=== PATIENT | male | born 1975 | race Two or more races ===

== ENCOUNTER 2017-02-27 07:38 | Emergency (ER) | payer MEDICAID ==
[~2017-02-27] VITALS: Ht 177.8 cm; Wt 77.1 kg
[2017-02-27] MEDS ORDERED: NKM (07:39)
--- NOTE | 2017-02-27 07:52 | Emergency Room Report ---
History of Present Illness General Chief Complaint: Upper Respiratory Illness Source: Patient, EMS Present Illness HPI Patient present with complaints of epigastric pain with midsternal pain and burning Ongoing for the past 2 weeks off and on however over the past 2 days worsening Denies any vomiting or diarrhea Denies any flank pain Pain is 8/10 as noted above Denies any fall or trauma Patient describes chest pain however it is essentially midsternal with radiation from the epigastric area Denies any pleurisy Patient has a mild cough Allergies: Coded Allergies: No Known Allergies (Unverified , 02/27/17) Patient History Past Medical History: see triage record Pertinent Family History: none Reviewed Nursing Documentation: PMH: Agreed, PSxH: Agreed Nursing Documentation-PMH Past Medical History: No History, Except For History Of Psychiatric Problem: Yes - anxiety Review of Systems All Other Systems: negative except mentioned in HPI Physical Exam Vital Signs Date Time Temp Pulse Resp B/P Pulse Ox O2 Delivery O2 Flow Rate FiO2 02/27/17 07:35 98.4 75 18 152/92 98 Room Air Sp02 EP Interpretation: reviewed, normal General Appearance: mild distress - Patient appears uncomfortable and in pain Head: normocephalic, atraumatic Eyes: bilateral eye EOMI, bilateral eye PERRL ENT: hearing grossly normal, normal pharynx, TMs + canals normal, uvula midline Neck: full range of motion, supple, no meningismus, no bony tend Respiratory: lungs clear, normal breath sounds, no rhonchi, no respiratory distress, no retraction, no accessory muscle use Cardiovascular #1: normal peripheral pulses, regular rate, rhythm, no edema, no gallop, no JVD, no murmur Gastrointestinal: normal bowel sounds, non tender, soft, no mass, no organomegaly, non-distended, no guarding, no hernia, no pulsatile mass, no rebound Musculoskeletal: normal inspection Neurologic: oriented x3, responsive, heat treat supervisor III-XII nml as tested, motor strength/ tone normal, sensory intact Psychiatric: mood/affect normal Skin: normal color, no rash, warm/dry, palpation normal Lymphatic: normal inspection, no adenopathy Medical Decision Making Diagnostic Impression: Primary Impression: Abdominal pain Additional Impression: Drug abuse ER Course With the history exam and presentation, multiple differentials considered, including but not limited to appendicitis, gastritis, cholecystitis, diverticulitis Given the patient's continued discomfort and appearance of midsternal discomfort as well CT angios obtained Does not show any obvious acute pathology After multiple re\re evaluations Patient now does confirm methamphetamine use Which was on his urine sample Likely causing some of the symptoms the patient was feeling Otherwise remains hemodynamically stable and appropriate for close outpatient followup Labs Test 02/27/17 07:55 02/27/17 08:30 White Blood Count 10.7 K/UL (4.8-10.8) Red Blood Count 5.60 M/UL (4.70-6.10) Hemoglobin 16.1 G/DL (14.2-18.0) Hematocrit 47.2 % (42.0-52.0) Mean Corpuscular Volume 84 FL (80-99) Mean Corpuscular Hemoglobin 28.8 PG (27.0-31.0) Mean Corpuscular Hemoglobin Concent 34.1 G/DL (32.0-36.0) Red Cell Distribution Width 12.4 % (11.6-14.8) Platelet Count 360 K/UL (150-450) Mean Platelet Volume 6.5 FL (6.5-10.1) Neutrophils (%) (Auto) 62.7 % (45.0-75.0) Lymphocytes (%) (Auto) 27.8 % (20.0-45.0) Monocytes (%) (Auto) 6.1 % (1.0-10.0) Eosinophils (%) (Auto) 2.2 % (0.0-3.0) Basophils (%) (Auto) 1.2 % (0.0-2.0) Sodium Level 138 mEQ/L (135-145) Potassium Level 3.9 mEQ/L (3.4-4.9) Chloride Level 98 mEQ/L (98-107) Carbon Dioxide Level 25 mEQ/L (20-30) Anion Gap 15 (5-15) Blood Urea Nitrogen 14 mg/dL (7-23) Creatinine 1.0 mg/dL (0.7-1.2) Estimat Glomerular Filtration Rate > 60 mL/min (>60) Glucose Level 96 mg/dL (74-106) Calcium Level 9.6 mg/dL (8.6-10.2) Total Bilirubin 0.3 mg/dL (0.0-1.2) Aspartate Amino Transf (AST/SGOT) 29 U/L (5-40) Alanine Aminotransferase (ALT/SGPT) 67 U/L (3-41) Alkaline Phosphatase 86 U/L (40-129) Total Protein 7.8 g/dL (6.6-8.7) Albumin 4.1 g/dL (3.5-5.2) Globulin 3.7 g/dL Albumin/Globulin Ratio 1.1 (1.0-2.7) Lipase 100 U/L (< 60) Serum Alcohol < 10 mg/dL Urine Opiates Screen Negative (NEGATIVE) Urine Barbiturates Screen Negative (NEGATIVE) Phencyclidine (PCP) Screen Negative (NEGATIVE) Urine Amphetamines Screen Positive (NEGATIVE) Urine Benzodiazepines Screen Negative (NEGATIVE) Urine Cocaine Screen Negative (NEGATIVE) Urine Marijuana (THC) Screen Negative (NEGATIVE) Rhythm Strip Diag. Results EP Interpretation: yes Rate: 88 Rhythm: NSR, no PVC's, no ectopy Chest X-Ray Diagnostic Results EP Interpretation: Yes Findings: no consolidation, no effusion, no pneumothorax Number of Views: 1 CT/MRI/US Diagnostic Results CT/MRI/US Diagnostic Results : Impression CT abdomen pelvisImpression: Normal appearance of the aorta. No evidence of dissection or aneurysm. Mild posterior basilar atelectasis Gallstone Fatty liver Left renal cyst Normal appendix Diverticulosis of the colon Splenule Last Vital Signs Date Time Temp Pulse Resp B/P Pulse Ox O2 Delivery O2 Flow Rate FiO2 02/27/17 07:35 98.4 75 18 152/92 98 Room Air Status: improved Disposition: HOME, SELF-CARE Condition: Improved Scripts Hydrocodone Bit/Acetaminophen 5-325* (NORCO 5-325*) 1 Each Tablet 1 TAB ORAL Q6H Y for For Pain, #10 TAB 0 Refills Prov: COLEEN GRANT D.O. 02/27/17 Famotidine (PEPCID) 40 Mg Tablet 40 MG PO DAILY, #14 TAB 0 Refills Prov: COLEEN GRANT D.O. 02/27/17 Additional Instructions: Patient is provided with the discharge instructions notified to follow up with primary doctor in the next 2-3 days otherwise return to the er with any worsening symptoms. Please note that this report is being documented using [employer] technology. This can lead to erroneous entry secondary to incorrect interpretation by the dictating instrument. COLEEN GRANT D.O. February 27, 2017 07:52
[2017-02-27] MEDS ORDERED: Morphine Sulfate 4mg/ml Inj IVP ONE ×2 (08:00→08:45)
[2017-02-27] MEDS ORDERED: DiphenhydrAMINE 50mg/ml Inj IVP ONE (08:00)
[2017-02-27] MEDS ORDERED: Mylanta II UD 30ml ORAL ONE ×2 (08:00→08:45)
[2017-02-27] MEDS ORDERED: Dicyclomine HCl 10mg/5ml oral soln ORAL ONE ×2 (08:00→08:45)
[2017-02-27] MEDS ORDERED: Metoclopramide 10mg/2ml Inj IVP ONE (08:00)
[2017-02-27 08:06] VITALS: BP 127/90
[2017-02-27 08:19] LABS: BASOPHILS % (AUTO) 1.2 % (0.0-2.0); EOSINOPHILS % (AUTO) 2.2 % (0.0-3.0); LYMPHOCYTES % (AUTO) 27.8 % (20.0-45.0); MEAN CORPUSCULAR HEMOGLOBIN 28.8 PG (27.0-31.0); MEAN CORPUSCULAR HGB CONC 34.1 G/DL (32.0-36.0); MEAN CORPUSCULAR VOLUME 84 FL (80-99); MEAN PLATELET VOLUME 6.5 FL (6.5-10.1); MONOCYTES % (AUTO) 6.1 % (1.0-10.0); NEUTROPHILS % (AUTO) 62.7 % (45.0-75.0); PLATELET COUNT 360 K/UL (150-450); RED CELL DISTRIBUTION WIDTH 12.4 % (11.6-14.8); WHITE BLOOD COUNT 10.7 K/UL (4.8-10.8)
[2017-02-27 08:27] LABS: ALANINE AMINOTRANSFERASE 67 U/L (3-41); ALBUMIN/GLOBULIN RATIO 1.1 (1.0-2.7); ANION GAP 15 (5-15); ASPARTATE AMINO TRANSFERASE 29 U/L (5-40); CALCIUM 9.6 mg/dL (8.6-10.2); CARBON DIOXIDE 25 mEQ/L (20-30); CHLORIDE 98 mEQ/L (98-107); GLOMERULAR FILTRATION RATE > 60 mL/min (>60); HEMOLYSIS 4; LIPASE 100 U/L (< 60); POTASSIUM 3.9 mEQ/L (3.4-4.9); SODIUM 138 mEQ/L (135-145); TOTAL PROTEIN 7.8 g/dL (6.6-8.7)
[2017-02-27] MEDS ORDERED: LORazepam Inj 2mg/ml 1ml IV ONE (08:45)
[2017-02-27] MEDS ORDERED: Famotidine 20 MG/ 2ML VIAL IVP ONE (08:45)
[2017-02-27] MEDS ORDERED: Lidocaine 2% Visc 15ml soln ORAL ONE (08:45)
--- NOTE | 2017-02-27 10:03 | Diagnostic Imaging Report ---
Indication: Abdominal Pain Technique: Continuous helical transaxial imaging of the chest, abdomen and pelvis was obtained from the thoracic inlet to the pubic symphysis during rapid intravenous contrast administration. Arterial phase of enhancement obtained. Coronal 2-D reformats were also obtained and maximum intensity projection images in multiple planes. Study obtained in a Siemens sensation [address] Total Dose length Product (DLP): [address] Dose Index Volume (CTDIvol): 8, 81, 21 mGy Comparison: None Findings: There is no evidence of aortic dissection or aneurysm. The thoracic and abdominal aorta appear normal in caliber. The basilar artery, left common carotid artery left subclavian arteries appear widely patent though partially obscured by dense radiographic contrast from the innominate vein. This there is reasonable opacification of the pulmonary artery on this examination. No evidence of pulmonary embolus. Heart is unremarkable. The lungs are clear. There is some mild basilar atelectasis. There is no consolidation or abnormal fluid collections identified. The abdominal aorta is normal in appearance. The iliac arteries appear normal. Celiac artery, SMA, DARRELL and bilateral renal arteries are widely patent. Gallstone noted. The liver is low in attenuation consistent with fatty infiltration. Suggestion of a left renal cyst. There is no hydronephrosis demonstrated. No free fluid or free air identified. The appendix is normal. Urinary bladder is nondistended. Prostate calcification noted. A few discrete colonic diverticula are noted. No evidence of acute diverticulitis or other inflammatory process identified within the abdomen. Accessory spleen noted. Impression: Normal appearance of the aorta. No evidence of dissection or aneurysm. Mild posterior basilar atelectasis Gallstone Fatty liver Left renal cyst Normal appendix Diverticulosis of the colon Splenule The CT scanner at [facility] is accredited by the [employer] and the scans are performed using dose optimization techniques as appropriate to a performed exam including Automatic Exposure control.
[2017-02-27 10:18] VITALS: BP 148/92
[2017-02-27] MEDS ORDERED: NORCO 5-325 TA1 EACH ORAL (10:33)
[2017-02-27] MEDS ORDERED: PEPCID40 MG PO (10:33)
[2017-02-27 10:49] VITALS: BP 141/91
[2017-02-27 10:51] VITALS: BP 141/91
--- NOTE | 2017-03-02 08:33 | Diagnostic Imaging Report ---
Indication: Chest Pain Comparison: None A single view chest radiograph was obtained. Findings: Cardiomediastinal appearance is within normal limits for age. Pulmonary vascularity is appropriate. The diaphragmatic contour is smooth and costophrenic angles are sharp. No pleural effusions are identified. The bones are unremarkable. There is a right humeral prosthesis Impression: No acute findings
== END 2017-02-27 10:53 | disposition home or self-care (01) ==
LOC: EDBD 07:38 → EMR 08:10
DX: R10.9 Unspecified abdominal pain (principal); F19.10 Other psychoactive substance abuse, uncomplicated; R05 Cough; R07.9 Chest pain, unspecified; Z86.59 Personal history of other mental and behavioral disorders; J98.11 Atelectasis; K80.80 Other cholelithiasis without obstruction; K76.0 Fatty (change of) liver, not elsewhere classified; N28.1 Cyst of kidney, acquired; K57.90 Diverticulosis of intestine, part unspecified, without perforation or abscess without bleeding
CPT/HCPCS: 36415; 71010; 71275; 72191; 74175; 80053; 80300; 80329; 83690; 85025; 96374; 96375; 99284; J1200; J2270; J2765; J7040; Q9967; S0028